=== PATIENT | male | born 1970 | race Two or more races ===

== ENCOUNTER 2018-08-17 08:11 | Inpatient (IN) | payer MEDICAID ==
[~2018-08-17] VITALS: Ht 170.2 cm; Wt 99.5 kg
[2018-08-17] MEDS ORDERED: LEVOFLOXACIN 750MG PREMIX 150 ML IV ONE (08:30)
[2018-08-17] MEDS ORDERED: SODIUM CHLORIDE 0.9% 1000ML BAG (SEPSIS BOLUS) IV ONE (08:30)
[2018-08-17 08:42] LABS: HEMATOCRIT. 47.2 % (42.0-52.0); HEMOGLOBIN. 16.2 g/dL (14.0-18.0); MEAN CORPUSCULAR HEMOGLOBIN 31.4 pg (28.0-32.0); MEAN CORPUSCULAR VOLUME 91.4 fL (80.0-94.0); MEAN PLATELET VOLUME 7.1 fl (7.4-10.4); PLATELET 179 x1000/uL (130-400); RED BLOOD CELL COUNT 5.17 mill/uL (4.7-6.1); RED CELL DISTRIBUTION WIDTH 13.6 % (11.6-14.6)
[2018-08-17 08:45] LABS: CHLORIDE 107 mEq/L (98-107); INR 1.1; PROTHROMBIN TIME 11.6 sec (9.6-11.0)
[2018-08-17 10:09] LABS: CLARITY URINE CLEAR (CLEAR); COLOR URINE ORANGE (YELLOW); KETONES URINE NEGATIVE (NEGATIVE); LEUKOCYTE ESTERASE URINE 3+ (NEGATIVE); NITRITE URINE NEGATIVE (NEGATIVE); OCCULT BLOOD URINE 3+ (NEGATIVE); PH URINE 5.5 (4.5-8.0); PROTEIN URINE TRACE (NEGATIVE); SPECIFIC GRAVITY URINE 1.006 (1.005-1.030); UROBILINOGEN URINE 0.2 E.U./dL (0.2-1.0)
[2018-08-17] MEDS ORDERED: ACETAMINOPHEN 325MG TABLET PO ONE (11:00)
[2018-08-17] MEDS: SODIUM CHLORIDE 0.9% 1,000 ML IV SCH ×2 (12:47→22:46)
[2018-08-17] MEDS ORDERED: GUAIFENESIN 200MG/10ML SUGAR FREE UDC PO PRN (13:00)
[2018-08-17] MEDS ORDERED: ONDANSETRON HCL 4MG/2ML INJ IV PRN (13:00)
[2018-08-17] MEDS ORDERED: MAGNESIUM/ALUMINUM HYDROXIDE/SIMETHICONE 30ML UDC PO PRN (13:00)
[2018-08-17] MEDS ORDERED: IPRATROPIUM/ALBUTEROL 0.5-3(2.5)MG/3ML NEB INH PRN (13:00)
[2018-08-17] MEDS ORDERED: CLONIDINE 0.1MG TABLET PO PRN (13:00)
[2018-08-17] MEDS ORDERED: DOCUSATE SODIUM 100MG CAPSULE PO PRN (13:00)
[2018-08-17] MEDS ORDERED: DIPHENHYDRAMINE 50MG/ML VIAL IV PRN (13:00)
[2018-08-17 13:54] LABS: HEPATITIS B SURFACE ANTIGEN NEGATIVE
[2018-08-17 14:23] LABS: HEPATITIS A AB IGM NEGATIVE (NEGATIVE)
[2018-08-17 14:31] LABS: PHOSPHORUS 1.1 mg/dL (2.5-4.9)
[2018-08-17 14:34] LABS: CREATINE KINASE 122 IU/L (39-308)
[2018-08-17 14:35] LABS: CREATINE KINASE MB FRACTION < 1.0 ng/mL (0.5-3.6)
[2018-08-17] MEDS: CEFTRIAXONE 1 G PREMIX 50 ML IV SCH ×3 (15:30→16:56)
[2018-08-17] MEDS ORDERED: CEFTRIAXONE 1 G PREMIX 50 ML IV NR (15:30)
[2018-08-17] MEDS: ACETAMINOPHEN 325MG TABLET PO PRN (19:52)
[2018-08-17] MEDS ORDERED: MAGNESIUM 2 G PREMIX 50 ML IV SCH (22:00)
[2018-08-17] MEDS ORDERED: POTASSIUM CHLORIDE 20MEQ TABLET SR PO SCH (22:00)
[2018-08-17] MEDS: HYDROCODONE/ACETAMINOPHEN 5/325MG TABLET PO PRN (22:38)
[2018-08-17 22:55] VITALS: BP 129/67
[2018-08-17 23:43] LABS: CREATINE KINASE MB FRACTION 2.2 ng/mL (0.5-3.6)
[2018-08-18] VITALS (13 sets, daily range): BP systolic 114–146; BP diastolic 66–81
[2018-08-18 06:13] LABS: HIV SCREEN 4G Non Reactive (Non Reactive)
[2018-08-18 06:32] LABS: HEMATOCRIT. 39.4 % (42.0-52.0); HEMOGLOBIN. 13.3 g/dL (14.0-18.0); MEAN CORPUSCULAR HEMOGLOBIN 31.5 pg (28.0-32.0); MEAN CORPUSCULAR VOLUME 93.3 fL (80.0-94.0); MEAN PLATELET VOLUME 7.6 fl (7.4-10.4); PLATELET 144 x1000/uL (130-400); RED BLOOD CELL COUNT 4.22 mill/uL (4.7-6.1); RED CELL DISTRIBUTION WIDTH 13.8 % (11.6-14.6)
[2018-08-18 06:41] LABS: CHLORIDE 113 mEq/L (98-107)
[2018-08-18 06:56] LABS: LDL CHOLESTEROL 40 mg/dL (5-100)
[2018-08-18 06:58] LABS: HDL CHOLESTEROL 29 mg/dL (40-59)
[2018-08-18] MEDS: ACETAMINOPHEN 325MG TABLET PO PRN ×2 (08:36→20:00)
[2018-08-18] MEDS: SODIUM CHLORIDE 0.9% 1,000 ML IV SCH ×3 (09:49→21:35)
[2018-08-18 13:24] LABS: PLATELET ESTIMATE NORMAL
[2018-08-18] MEDS: CEFTRIAXONE 1 G PREMIX 50 ML IV SCH (16:43)
[2018-08-18] MEDS: HYDROCODONE/ACETAMINOPHEN 5/325MG TABLET PO PRN (20:00)
[2018-08-19] VITALS (11 sets, daily range): BP systolic 116–157; BP diastolic 65–95
[2018-08-19] MEDS: ACETAMINOPHEN 325MG TABLET PO PRN (04:31)
[2018-08-19 06:34] LABS: BASOPHILS % 0.4 % (0.0-2.0); EOSINOPHILS % 1.5 % (0.0-5.0); HEMOGLOBIN. 13.2 g/dL (14.0-18.0); LYMPHOCYTES % 12.6 % (20.0-50.0); MEAN CORPUSCULAR HEMOGLOBIN 31.3 pg (28.0-32.0); MEAN CORPUSCULAR VOLUME 92.6 fL (80.0-94.0); MEAN PLATELET VOLUME 8.4 fl (7.4-10.4); MONOCYTES % 5.9 % (2.0-8.0); NEUTROPHILS % 79.6 % (40.0-76.0); PLATELET 160 x1000/uL (130-400); RED BLOOD CELL COUNT 4.22 mill/uL (4.7-6.1); RED CELL DISTRIBUTION WIDTH 14.1 % (11.6-14.6)
[2018-08-19 06:47] LABS: CHLORIDE 111 mEq/L (98-107)
[2018-08-19] MEDS: CEFTRIAXONE 1 G PREMIX 50 ML IV SCH (15:27)
== END 2018-08-19 19:30 | disposition home or self-care (01) | DRG 720 ==
LOC: ER 08:11 → 5EST 11:41 → EDBEDREQ 11:46 → ENRESERV 20:43
PROVIDERS: ADMIT Internal Medicine; ATTEND Internal Medicine
DX: A41.51 Sepsis due to Escherichia coli [E. coli] (principal); E83.42 Hypomagnesemia; R65.20 Severe sepsis without septic shock; E87.6 Hypokalemia; N39.0 Urinary tract infection, site not specified; Z96.659 Presence of unspecified artificial knee joint; R31.9 Hematuria, unspecified; R74.0 Nonspecific elevation of levels of transaminase and lactic acid dehydrogenase [LDH]; E66.9 Obesity, unspecified; Z68.34 Body mass index [BMI] 34.0-34.9, adult
CPT/HCPCS: 36415; 71045; 74176; 76700; 80048; 80061; 82550; 82553; 83036; 83605; 83735; 84100; 84145; 84443; 84484; 86705; 86709; 86803; 87077; 87186; 87340; 87389; 93005; 93970; 96374; 97162; 97166; 99285; J0696; J1956; J3475; J7030